=== PATIENT | female | born 1980 | race Caucasian/White ===

== ENCOUNTER → 2019-10-25 10:22 | Outpatient (CLI) | payer BC, SELFPAY ==
[2019-10-25 12:28] LABS: Free T4 (Free Thyroxine) 1.42 ng/dl (0.78-2.19)
[2019-10-25 12:59] LABS: NT Pro Brain Natriuretic Pep. 75.7 pg/mL (0-125)
[2019-10-25 13:21] LABS: Thyroid Stimulating Hormone 5.75 uIU/mL (0.465-4.68)
== END ==
PROVIDERS: Visit Provider Internal Medicine Cardiovascular Disease
DX: R06.00 Dyspnea, unspecified; R00.0 Tachycardia, unspecified; R00.2 Palpitations; I10 Essential (primary) hypertension; K21.9 Gastro-esophageal reflux disease without esophagitis; F41.9 Anxiety disorder, unspecified; Z82.49 Family history of ischemic heart disease and other diseases of the circulatory system
CPT/HCPCS: 36415; 83880; 84439; 84443

== ENCOUNTER → 2019-10-29 10:38 | Outpatient (CLI) | payer BC, SELFPAY ==
--- NOTE | 2019-10-29 10:39 | CA_ITS ---
APPROVED REPORT EXAM: Comprehensive 2D, Doppler, and color-flow Echocardiogram Exhibitor Sales: Kika García RT(R) Ht: 5 ft 7 in Wt: 210lbs BSA: 2.07 BP: 132/87 mmHg Indications: Palpitations, HTN, SOB, MUÑIZ, family history of CAD, tachycardia, GERD 2D Dimensions LVOT 1.99 cm (M/F) 1.5-2.5 M-Mode Dimensions RVDd 1.84 cm (0.9-2.6) LVDd 3.39 cm (3.5-5.7) LVDs 2.29 cm (3.5-5.7) IVSd 0.81 cm (0.6-1.1) PWd 0.95 cm (0.6-1.1) EF (Teich) 62.00% FS 32.40% EDV (Teich) 47.10 mL ESV (Teich) 17.90 mL LV Diastology E/A Ratio 1.04 Mitral Valve MV A Velocity 70.00 (40-130 cm/s) Left Ventricle Left atrium is mildly enlarged, left ventricle is normal size, there is mild concentric left ventricular hypertrophy, visually estimated ejection fraction 55% with no regional wall motion abnormality. Diastolic parameters are within normal range. Right Ventricle Right atrium right ventricular normal size and contractility. Aortic Valve Aortic valve is minimally thickened and fibrosed, there is no aortic stenosis or aortic insufficiency. Mitral Valve Mitral valve is grossly normal, there is mild mitral regurgitation. Tricuspid Valve Tricuspid valve is grossly normal, there is mild tricuspid regurgitation, tricuspid regurgitation jet velocity is inadequate for calculation of the right ventricular systolic pressure. Pulmonic Valve Pulmonic valve is poorly visualized. Great Vessels Aortic root is normal size. Pericardium No significant pericardial effusion noted. Conclusion 1. Normal left ventricular size, preserved left ventricular systolic function, visually estimated ejection fraction 55% with no regional wall motion abnormality, diastolic parameters are within normal range. 2. Mild mitral and tricuspid regurgitation. 3. No significant pericardial effusion noted. Electronically signed by : Abe Juarez, 10/29/2019 19:24:24
== END ==
PROVIDERS: PCP Emergency Medicine; Visit Provider Internal Medicine Cardiovascular Disease
DX: R00.0 Tachycardia, unspecified (principal); R00.2 Palpitations; R06.00 Dyspnea, unspecified; F41.9 Anxiety disorder, unspecified; I10 Essential (primary) hypertension; K21.9 Gastro-esophageal reflux disease without esophagitis; Z82.49 Family history of ischemic heart disease and other diseases of the circulatory system
CPT/HCPCS: 93270; 93306

== ENCOUNTER → 2019-11-09 12:26 | Outpatient (CLI) | payer BC, SELFPAY | PROVIDERS: PCP Emergency Medicine; Visit Provider Internal Medicine Cardiovascular Disease | DX: G47.9 Sleep disorder, unspecified (principal); R06.83 Snoring; R40.0 Somnolence | CPT/HCPCS: G0399 ==

== ENCOUNTER → 2021-05-11 13:01 | Outpatient (CLI) | payer SELFPAY ==
--- NOTE | 2021-05-11 13:01 | CT_ITS ---
PROCEDURE: CT HEART W CALCIUM SCORE CLINICAL HISTORY: screening COMPARISON: No exams were available for comparison TECHNIQUE: Axial images obtained with sagittal and coronal reformats. All CT scans at the facility use one or more dose reduction, viz: automated exposure control, ma/kV adjustment per patient size (including targeted exams where dose is matched to indication, i.e. head), or iterative reconstruction technique. FINDINGS: Coronary artery calcium score is 0. No identifiable calcific atherosclerotic plaque with very low cardiovascular disease risk. There is minimal thickening of the pericardium posteriorly inferiorly. There are 2 fissural nodules in the right minor fissure at 4 and 5 mm and may represent small lymph nodes. IMPRESSION: No identifiable calcific atherosclerotic plaque with very low cardiovascular disease risk Dictated by: Frank Hernandez MD 05/11/2021 17:53 Frank Hernandez MD in [facility] 05/11/2021 17:53
== END ==
PROVIDERS: Visit Provider Internal Medicine Cardiovascular Disease
DX: Z13.6 Encounter for screening for cardiovascular disorders (principal)
CPT/HCPCS: 75571